=== PATIENT | male | born 1990 | race Caucasian/White ===

== ENCOUNTER 2018-05-14 20:29 | Emergency (ER) | payer OTHER ==
[~2018-05-14] VITALS: Ht 177.8 cm; Wt 96.6 kg
[2018-05-14 20:31] VITALS: Ht 177.8 cm; Wt 96.6 kg
[2018-05-14 23:10] VITALS: BP 130/73
== END 2018-05-14 23:10 | disposition home or self-care (01) ==
LOC: ED 20:29
DX: R07.89 Other chest pain (principal); R06.02 Shortness of breath; R42 Dizziness and giddiness; I10 Essential (primary) hypertension
CPT/HCPCS: J1885